=== PATIENT | male | born 1955 | race Two or more races ===

== ENCOUNTER 2018-03-08 06:51 | Emergency (ER) | payer BC ==
[~2018-03-08] VITALS: Ht 177.8 cm; Wt 91.8 kg
[2018-03-08 08:28] VITALS: BP 123/87
== END 2018-03-08 08:29 | disposition home or self-care (01) ==
LOC: ED 06:51
DX: S22.32XA Fracture of one rib, left side, initial encounter for closed fracture (principal); E11.9 Type 2 diabetes mellitus without complications; I10 Essential (primary) hypertension; E78.00 Pure hypercholesterolemia, unspecified; W18.2XXA Fall in (into) shower or empty bathtub, initial encounter; Y93.E1 Activity, personal bathing and showering; Y92.091 Bathroom in other non-institutional residence as the place of occurrence of the external cause; Y99.8 Other external cause status
CPT/HCPCS: J1885